=== PATIENT | female | born 1990 | race African-American/Black ===

== ENCOUNTER 2018-12-30 20:03 | Emergency (ER) | payer SELFPAY ==
[~2018-12-30] VITALS: Ht 162.6 cm; Wt 81.6 kg
[~2018-12-30 20:03] MED LIST: ALBUTEROL SULF8.5 GM INH; ANUSOL-HC CREAM30 GM RECTAL; CLIND PH-BENZOY45 GM TP; COLACE100 MG ORAL; IBUPROFEN600 MG ORAL; IBUPROFEN800 MG ORAL; KETOCONAZOLE15 GM TOP; NAPROSYN500 M1 ORAL; NAPROXEN500 M2 ORAL; NKM; OCEAN45 ML NASAL; PROAIR HFA8.5 GM INH; PROMETHAZINE V240 ML ORAL; PROMETHAZINE-C118 M1 ORAL; PSEUDOEPHEDRINE60 MG PO
--- NOTE | 2018-12-30 20:16 | NUR ---
ED Nurse Note: patient was called, she is not in the waiting room
--- NOTE | 2018-12-30 21:00 | NUR ---
ED Nurse Note: REcieved pt from home, here with c/o mid back pain at 8/10 for 1 week and abd pain intermittently, pt states constant nausea and vomiting, denies fevers, no cp, no sob, pt gowned, unable ot give urine, will resume care as ordered and closely monitor.
--- NOTE | 2018-12-30 21:15 | NUR ---
ED Nurse Note: Pt refuses to have IV line and states she thinks she is wnd just wants to know that, MD informed and aware, new orders given, waiting for results, pt has spouse in room with her and does nto want him to know her information or results but will not allow him to go outside, informed of pt request also.
[2018-12-30 21:24] LABS: APPEARANCE,URINE CLOUDY; BILIRUBIN, URINE NEGATIVE (NEGATIVE); GLUCOSE, URINE (UA) NEGATIVE (NEGATIVE); KETONES,URINE NEGATIVE (NEGATIVE); LEUKOCYTE ESTERASE ,URINE 3+ (NEGATIVE); NITRITE,URINE NEGATIVE (NEGATIVE); PH,URINE 6 (4.5-8.0); PROTEIN,URINE NEGATIVE (NEGATIVE); UROBILINOGEN,URINE 1 MG/DL (0.0-1.0)
[2018-12-30 21:27] LABS: COLOR,URINE YELLOW
[2018-12-30] MEDS ORDERED: Cephalexin 500mg cap ORAL ONE (21:45)
[2018-12-30] MEDS ORDERED: CEPHALEXIN500 MG ORAL (21:45)
--- NOTE | 2018-12-30 21:46 | Emergency Room Report ---
History of Present Illness General Chief Complaint: General Complaint Source: Patient, Medical Record Present Illness HPI Is a 28-year-old female with no past medical history. She presents with chief complaint of pubic cramping. Onset for last 3 to 4 days. Also with lower back pain. Does have some urinary frequency. She thinks that she may be . No nausea no vomiting. No fever chills. Pain is crampy in nature. 7 out of 10. Allergies: Coded Allergies: DEXTROMETHORPHAN (Verified Allergy, Severe, 12/08/14) ACETAMINOPHEN (Verified Allergy, Mild, RASH, 05/02/13) HYDROCODONE (Verified Allergy, Mild, RASH, 05/02/13) SULFAMETHOXAZOLE (Verified Allergy, Mild, RASH, 05/02/13) TRIMETHOPRIM (Verified Allergy, Mild, RASH, 05/02/13) Patient History Past Medical History: see triage record, old chart reviewed Past Surgical History: none Pertinent Family History: none Social History: Denies: smoking Last Menstrual Period: unk Now: No - unk Immunizations: other Reviewed Nursing Documentation: PMH: Agreed; PSxH: Agreed Nursing Documentation-PMH Past Medical History: No History, Except For Hx Cardiac Problems: Yes - HEART MURMUR Review of Systems Eye: Denies: eye pain, blurred vision ENT: Denies: ear pain, nose congestion, throat swelling Respiratory: Denies: cough, shortness of breath Cardiovascular: Denies: chest pain, palpitations Gastrointestinal: Reports: abdominal pain; Denies: diarrhea, nausea, vomiting Musculoskeletal: Denies: back pain, joint pain Skin: Denies: rash Neurological: Denies: headache, numbness Endocrine: Denies: increased thirst, increased urine Hematologic/Lymphatic: Denies: easy bruising All Other Systems: negative except mentioned in HPI Physical Exam Vital Signs Date Time Temp Pulse Resp B/P (MAP) Pulse Ox O2 Delivery O2 Flow Rate FiO2 12/30/18 20:36 98.6 98 18 115/75 (88) 98 Room Air Vitals normal Sp02 EP Interpretation: reviewed, normal General Appearance: well appearing, no apparent distress, alert Head: normocephalic, atraumatic Eyes: bilateral eye PERRL, bilateral eye EOMI ENT: hearing grossly normal, normal pharynx Neck: full range of motion, supple, no meningismus Respiratory: chest non-tender, lungs clear, normal breath sounds Cardiovascular #1: regular rate, rhythm, no murmur Gastrointestinal: normal bowel sounds, non tender, no mass, no organomegaly, no bruit, non-distended Musculoskeletal: back normal, gait/station normal, normal range of motion Psychiatric: mood/affect normal Medical Decision Making Diagnostic Impression: Primary Impression: UTI (urinary tract infection) Qualified Codes: N30.00 - Acute cystitis without hematuria Additional Impression: Qualified Codes: Z3A.01 - Less than 8 weeks gestation of ER Course This patient presents with UTI and early . No bleeding or significant pain. Will discharge home. Most her symptoms are more UTI in nature. I doubt ectopic in this patient. She is literally just a few days based on her last menstruation. Last Vital Signs Date Time Temp Pulse Resp B/P (MAP) Pulse Ox O2 Delivery O2 Flow Rate FiO2 12/30/18 20:36 98.6 98 18 115/75 (88) 98 Room Air Status: improved Disposition: HOME, SELF-CARE Condition: Stable Scripts Cephalexin* (KEFLEX*) 500 Mg Capsule 500 MG ORAL TID, #21 CAP Prov: Curt Goldberg MD 12/30/18 Additional Instructions: Follow-up with your doctor in 7 days. Return if symptoms worsen. Curt Goldberg MD Dec 30, 2018 21:46
--- NOTE | 2018-12-30 21:50 | NUR ---
ED Nurse Note: Pt being D/C to home, given results in private by , now pt wants nurse to come in and give results so spouse can hear them, pt being d/c to home, given f/u info and after care instruciton, pt in bed eating [employer] hamburgers and drink, tolerating well and lauiging and conversing with spouse, nad note during pt d/c to home ambulating well. pt denies pain at this time.
[2018-12-30] MEDS ORDERED: Cephalexin 500mg cap ONE (21:57)
[2018-12-30 22:00] VITALS: BP 121/71
== END 2018-12-30 22:00 | disposition home or self-care (01) ==
LOC: EMR 21:08
DX: O23.11 Infections of bladder in pregnancy, first trimester (principal); Z3A.01 Less than 8 weeks gestation of pregnancy; R01.1 Cardiac murmur, unspecified; Z88.8 Allergy status to other drugs, medicaments and biological substances; Z88.6 Allergy status to analgesic agent; Z88.2 Allergy status to sulfonamides; Z88.1 Allergy status to other antibiotic agents
CPT/HCPCS: 81003; 81025; 87086; 99282